=== PATIENT | female | born 1945 | race Caucasian/White ===

== ENCOUNTER 2023-10-15 14:25 | Outpatient (CLI) | payer MEDICARE, OTHER ==
[2023-10-15 15:29] LABS: #Basophils 0.1 10x3/uL (0.0-0.2); #Eosinphils 0.2 10x3/uL (0.0-0.5); #Monocytes 0.7 10x3/uL (0.0-1.1); #Neutrophils 3.9 10x3/uL (1.5-8.4); %Basophils 0.7 % (0.0-2.0); %Eosinophils 2.3 % (0.0-6.0); %Lymphocytes 41.3 % (18.0-47.0); %Neutrophils 47.5 % (40.0-75.0); Hemoglobin 13.6 g/dL (12.0-15.5); Mean Corpuscular HGB CONC 32.4 g/dL (32.0-36.0); Mean Corpuscular Hemoglobin 29.3 pg (27.0-33.0); Mean Corpuscular Volume 90.5 fl (81.6-98.3); Mean Platelet Volume 11.5 fl (7.4-10.4); Platelet Count 244 10x3/uL (150-450); RBC Distribution Width 12.5 % (11.5-14.5); Red Blood Cell (RBC) Count 4.64 10x6/uL (3.90-5.03); White Blood Cell (WBC) Count 8.2 10x3/uL (3.5-10.5)
== END 2023-10-15 14:26 | disposition home or self-care (01) ==
LOC: LABBT 14:25
PROVIDERS: ATTEND Orthopaedic Surgery Hand Surgery
DX: Z01.818 Encounter for other preprocedural examination (principal); M65.341 Trigger finger, right ring finger; M65.342 Trigger finger, left ring finger
CPT/HCPCS: 85025; 93005; 93010

== ENCOUNTER 2023-10-20 09:46 | Day surgery (SDC) | payer MEDICARE, OTHER ==
[2023-10-15 14:43] VITALS: BMI 33.6
[2023-10-20] MEDS ORDERED: Lidocaine 1% MPF 2 ML VIAL ONE (10:06)
[2023-10-20] MEDS ORDERED: CEFAZOLIN 2 GM VIAL ONE (10:06)
[2023-10-20] MEDS ORDERED: Sodium Chloride 0.9% 100 ML ONE (10:06)
[2023-10-20] MEDS ORDERED: Bacitracin Zinc Ointment 30 gm TUBE ONE (10:41)
[2023-10-20] MEDS ORDERED: Bupivacaine PF 0.5% 30 ML VIAL ONE (10:41)
[2023-10-20] MEDS ORDERED: Betamet Acet/Betamet Na Ph 30 MG/5 ML VIAL ONE (11:05)
[2023-10-20] MEDS ORDERED: PROPOFOL 20 ML ONE (11:37)
[2023-10-20] MEDS ORDERED: fentaNYL PF 100 MCG/2 ML SYRINGE ONE (11:37)
[2023-10-20] MEDS ORDERED: Lidocaine 1% PF 5 ML VIAL ONE (11:49)
[2023-10-20] MEDS ORDERED: Dexamethasone 20 MG/5 ML VIAL ONE (11:57)
[2023-10-20] MEDS ORDERED: Ketorolac Tromethamine 30 MG (1 mL) VIAL ONE (11:57)
[2023-10-20] MEDS ORDERED: Ondansetron PF 4 MG/2 ML Vial ONE (12:13)
== END 2023-10-20 14:18 | disposition home or self-care (01) ==
LOC: SDC 09:46
PROVIDERS: ATTEND Orthopaedic Surgery Hand Surgery
PROC: 0LN80ZZ Release Left Hand Tendon, Open Approach (ICD-10-PCS; principal; 2023-10-20)
DX: M65.342 Trigger finger, left ring finger (principal); M67.442 Ganglion, left hand; G25.81 Restless legs syndrome; I10 Essential (primary) hypertension; M15.1 Heberden's nodes (with arthropathy); M65.341 Trigger finger, right ring finger; E07.9 Disorder of thyroid, unspecified; Z90.710 Acquired absence of both cervix and uterus; Z98.890 Other specified postprocedural states; Z79.899 Other long term (current) drug therapy; Z88.2 Allergy status to sulfonamides; Z88.8 Allergy status to other drugs, medicaments and biological substances
CPT/HCPCS: J0702; J1100; J1885; J2405; J2704; J3490; S0020

== ENCOUNTER 2024-04-12 08:50 | Outpatient (CLI) | payer MEDICARE, OTHER | END 2024-04-12 08:51 | disposition home or self-care (01) | LOC: BICMRI 08:50 | PROVIDERS: ATTEND Family Medicine | DX: F02.A0 Dementia in other diseases classified elsewhere, mild, without behavioral disturbance, psychotic disturbance, mood disturbance, and anxiety (principal); I67.89 Other cerebrovascular disease; R90.89 Other abnormal findings on diagnostic imaging of central nervous system | CPT/HCPCS: 70551 ==